=== PATIENT | female | born 1950 | race Caucasian/White ===

== ENCOUNTER 2017-03-08 10:44 | Inpatient (IN) | payer MEDICARE, BC ==
--- NOTE | ~2017-03-08 | HP ---
History And Physical [id number] [place]. [address] NAME: SAMARIA TURCIOS : 50 STATUS : ADM IN PAT#: [id number] AGE: 66 ADM/REG DATE : 03/08/17 MR#: [id number] REPORT SERV DATE: 03/08/17 DICTATED BY: RICK ASENCIO DATE: 03/08/17 REPORT STATUS : Draft TRANSCRIBED BY: MODL DATE: 03/08/17 DATE OF ADMISSION: 03/08/2017 EXAMINING PHYSICIAN: Rick Asencio M.D. REASON FOR ADMISSION: Diverticulitis. HISTORY OF PRESENT ILLNESS: This is a 66-year-old white female, who has had multiple episodes of diverticulitis in the past. She started one day of lower abdominal pain. She called Dr. Jenkins, who's nurse refer her to the emergency room for possible admission. She does have a history of small-bowel obstruction in the past. Last bowel movement was yesterday. She has had no vomiting, has had nausea. Maybe temperature of less than 100, but no other symptoms other than the lower abdominal pain, worse with walking and standing. She does have a past history of diverticulosis with diverticular rupture and peritonitis, white count was 55,000 at that time. She had a colostomy placed by Dr. Krishnan with a takedown subsequently. She has had a colectomy with loss of the descending and sigmoid colon in the past. Most of her diverticulitis now have been flare ups of the transverse colon, but she has a pandiverticulosis. The patient is admitted for IV antibiotics and IV fluid. The CT scan of the abdomen showed inflammatory changes in the fat surrounding the wall and thickening of the transverse colon, mid portion consistent with diverticulitis. She had mild distention of the small bowel as well consistent with ileus. PAST MEDICAL HISTORY: She has had multiple surgeries. She had three incisional hernias that had been repaired by Dr. Krishnan. History of sigmoid colectomy. History of reversal hysterectomy by Dr. Michael Dowling and a remote appendectomy. ALLERGIES: NONSTEROIDAL AND ANTI-INFLAMMATORY AGENTS CAUSE ADVERSE SIDE EFFECTS. HOME MEDICATIONS: Include the following: Artificial Tears 1 drop p.r.n.; estradiol 0.075 mg patch two days a week, Tuesday and Tuesday; losartan/HCTZ 50/12.5, she takes half a day as prophylaxis for cerebral aneurysm rupture, given by her liquid yeast supervisor Dr. Dowling. History of Olga 180 mg p.r.n. allergies, potassium 10 mEq half tablet at bedtime. FAMILY HISTORY: Father of a cerebral aneurysm. She has a brother who was discovered to have a cerebral aneurysm. He was also treated for leukemia. Father at age 59. SOCIAL HISTORY: She is . Lives with . Lives on [address]. Attended a babberly at [facility] in the past. No cigarettes or alcohol. She has no children. She has not been attending sikhism recently. REVIEW OF SYSTEMS: History And Physical [address] [address] NAME: SAMARIA TURCIOS : 50 STATUS : ADM IN [facility]#: [id number] AGE: 66 ADM/REG DATE : 03/08/17 MR#: [id number] REPORT SERV DATE: 03/08/17 DICTATED BY: RICK ASENCIO DATE: 03/08/17 REPORT STATUS : Draft TRANSCRIBED BY: MIKE DATE: 03/08/17 She had cholecystectomy for acalculous cholecystitis, history of hysterectomy, and small- bowel obstructions in the past. She has had no chest pain, shortness of breath, no fever, chills, night sweats, melena, or hematemesis. She has had nausea without vomiting. Normal bowel movement yesterday. No abdominal distention or leg swelling. No loss of coordination, unilateral weakness, fits, seizures, or convulsions. The remainder of the review of systems is negative. PHYSICAL EXAMINATION: GENERAL: White female, in no acute distress. VITAL SIGNS: Her blood pressure was 162/72, with a heart rate of 84, respiratory rate 16, afebrile. Oxygen saturation 99%. HEENT: EOMI. Sclerae clear. Conjunctivae pink. NECK: No bruit without any JVD. CHEST: Clear to A and P. HEART: Regular S1, S2 without murmur, gallop, or click. BREASTS: Grossly without mass. ABDOMEN: Tender diffusely. Bowel sounds are positive. EXTREMITIES: Have no edema. Distal pulses intact in dorsalis pedis and posterior tibial. NEUROLOGIC: She withdraws to plantar stimulation. Maintenance Mechanic Supervisor is equal and symmetric bilaterally. Coordination is intact. She has no tremor. LYMPHATICS: There is no adenopathy palpable. SKIN: Without rash, ecchymosis, or bruising. LABORATORY DATA: CT scan of the abdomen shows the pericolic inflammation in the transverse. Lactic acid level of 1.0. CMP: Sodium 137, potassium 3.7, and creatinine 0.81. Liver tests were normal. Lipase 109. White count was 12.8, hemoglobin 13.1, hematocrit 38.3, and platelet count 188,000. Urinalysis shows specific gravity of 1.006. PH of 7, negative diff, no cells. ASSESSMENT: 1. Diverticulitis, transverse colon, we will check a procalcitonin and a sedimentation rate, started on IV Unasyn as this has helped in the past. Convert to p.o. Augmentin rather quickly when she responds. 2. History of diverticulitis and diverticular rupture. Transverse and right colon remains. She says she has had a descending and sigmoid colectomy in the past. 3. Family history of cerebral aneurysm. She is on prophylactic estrogen and antihypertensives from Dr. Michael Dowling. PLAN: We will go to admission rather than observation as the patient has had significant problems in the past. DB/MIKE Rick Asencio M.D. History And Physical [address] [address] NAME: SAMARIA TURCIOS : 50 STATUS : ADM IN PAT#: [id number] AGE: 66 ADM/REG DATE : 03/08/17 MR#: [id number] REPORT SERV DATE: 03/08/17 DICTATED BY: RICK ASENCIO DATE: 03/08/17 REPORT STATUS : Draft TRANSCRIBED BY: MODL DATE: 03/08/17 / [id number] CC: Fadi Liriano III, M.D. Thomas Weldon, M.D.
--- NOTE | ~2017-03-08 | DS ---
Discharge Summary [facility] [address] [place]. [address] NAME: SAMARIA TURCIOS : 50 STATUS : ADM IN PAT#: [id number] AGE: 66 ADM/REG DATE : 03/08/17 MR#: [id number] REPORT SERV DATE: 03/11/17 DICTATED BY: TALIB MONDRAGON DATE: 03/11/17 REPORT STATUS : Draft TRANSCRIBED BY: MODL DATE: 03/11/17 ADMISSION DATE: 03/08/2017 DISCHARGE DATE: 03/11/2017 CONDITION ON DISCHARGE: Stable. DISPOSITION: Discharged to home. ADVICE ON DISCHARGE: To follow up with PCP within the next two weeks. DIAGNOSES ON DISCHARGE: 1. Acute diverticulitis-resolved. 2. History of diverticulitis previously and a history of diverticular rupture, for which she had to require partial colon resection. The patient has also had colostomy with colostomy reversal in the past. Currently, she does not have any colostomy. The patient is healthy otherwise. BRIEF HOSPITAL COURSE: The patient is a very pleasant 66-year-old, otherwise healthy, female patient, who was admitted with essentially abdominal pain, nausea. The patient had no vomiting. The patient did not have any significant diarrhea either, but her abdominal pain was severe enough for her to come on to the ER. The patient did get a CT scan of the abdomen that showed acute diverticulitis of the colon and this time it was the transverse colon and she was admitted for intravenous antibiotics and IV fluids. She received IV Unasyn as this has worked for her in the past and today is day #4 of receiving Unasyn and the patient is improved significantly. She denies any abdominal pain on the day of discharge. She is tolerating regular soft food really well. She feels that she is ready to go home and hence, she is being discharged on ten more days of Augmentin. So, her discharge medications will be Augmentin 875 mg p.o. b.i.d. for ten more days, next [place] 5/325 one to two p.o. twice a day p.r.n. for pain #15 only. Other than that, the patient is stable for discharge and no other medications have been given to her. She will resume all her regular home medications that she takes for hypertension and the only other additional medicine besides the Augmentin is Florastor 1 capsule p.o. b.i.d. for the next ten days also. The most recent lab work I have on this patient include the following. CBC on the day of discharge shows a WBC count of 5.2, hemoglobin 12.3, hematocrit 35.8, and platelet count of 179. Her comprehensive metabolic profile shows sodium 142, potassium 4.1, BUN 9, creatinine 0.6. LFTs are normal. Sedimentation rate is normal. Procalcitonin is normal and the patient is being discharged in stable condition and I have spent about 30 minutes in coordinating discharge care of this patient including this [id number] encounter. DICTATED BY: Fadi Bryan/MIKE Discharge Summary [address] [address] NAME: SAMARIA TURCIOS : 50 STATUS : ADM IN [facility]#: [id number] AGE: 66 ADM/REG DATE : 03/08/17 MR#: [id number] REPORT SERV DATE: 03/11/17 DICTATED BY: TALIB MONDRAGON DATE: 03/11/17 REPORT STATUS : Draft TRANSCRIBED BY: MIKE DATE: 03/11/17 Talib Mondargon M.D. / [id number] CC: Fadi Bryan M.D.
[2017-03-08 10:35] LABS: BASOPHILS 0.2 %; BASOPHILS ABSOLUTE 0.03 10/3/uL (0.0-0.16); EOSINOPHILS 0 %; ER CBC TAT 0 Hrs 00 Mins; HEMATOCRIT 38.3 % (36.0-48.0); HEMOGLOBIN 13.1 g/dL (12.0-16.0); IMMATURE GRANULOCYTES 0.2 %; IMMATURE GRANULOCYTES ABSOLUTE 0.03 10/3/uL (0.0-0.11); LYMPHOCYTES 12.8 %; LYMPHOCYTES ABSOLUTE 1.64 10/3/uL (0.67-4.30); MEAN CORPUS HGB CONC 34.2 g/dL (32.0-36.0); MEAN CORPUSCULAR HEMOGLOB 30.9 pg (26.0-34.0); MEAN CORPUSCULAR VOLUME 90.3 fL (80-100); MEAN PLATELET VOLUME 11.1 fL (9.2-13.0); MONOCYTES 12.7 %; MONOCYTES ABSOLUTE 1.62 10/3/uL (0.21-1.20); NEUTROPHILS 74.1 %; NEUTROPHILS ABSOLUTE 9.46 10/3/uL (2.02-8.40); PLATELET COUNT 188 10/3/uL (150-400); RBC DISTRIBUTION WIDTH 13.7 % (12.0-16.0); RED CELL COUNT 4.24 10/6/uL (4.0-5.6); WHITE BLOOD CELLS 12.8 10/3/uL (4.5-10.5)
[2017-03-08 10:37] LABS: ASCORBIC ACID (UR NOT ORDER) NEG (NEG); BILIRUBIN, URINE NEGATIVE (NEG); ER URINALYSIS TAT 0 Hrs 28 Mins; KETONE, URINE NEGATIVE (NEG); LEUKOCYTE ESTERASE(NOT OR NEG (NEG); NITRITE (URINE) NEG (NEG); WBC (NOT ORDERED) (RFLEX) < 1 (0-5)
[2017-03-08 10:38] LABS: MANUAL DIFF NO %
[~2017-03-08 10:44] MED LIST: ALLEGRA180 PO; CALTRA600D PO; CALTRAT600 PO; DARV PO; GLUCCHONDR PO; HYZAAR 50/12.51 TAB PO; LEVSINTAB PO; METAMUCIL CAN7 OZ PO; METROGEL1 % TOP; MINIVELLE1 EAC2 TOP; MULTIVITAMI1 PO; PSEUDOEPHEDR30 MG OR; REFRESH OP; SYNTEST H.S. PO; SYSTANE BALANCE OP; T PO; ULTRAM50 PO; VITAMIN B PO; VITAMIN B-100 PO; VIVELLE-DOT0.075 MG TOP
[2017-03-08 10:50] LABS: A/G RATIO 1.2 (0.7-1.9); ALBUMIN 3.8 G/DL (3.5-5.0); ALKALINE PHOSPHATASE 64 U/L (45-117); BUN (BLOOD UREA NITROGEN) 14 MG/DL (6-23); CALCIUM, SERUM 9.1 MG/DL (8.5-10.4); CHLORIDE, SERUM 106 MMOL/L (96-112); CO2 (CARBON DIOXIDE) 29 MMOL/L (24-34); CREATININE 0.81 MG/DL (0.55-1.02); GFR AFRICAN AMERICAN 88 ML/MIN (>=60); GFR NON AFRICAN AMERICAN 76 ML/MIN (>=60); GLOBULIN 3.2 G/DL (2.5-4.1); GLUCOSE, SERUM 91 MG/DL (60-99); POTASSIUM, SERUM 3.7 MMOL/L (3.5-5.3); SGOT(AST) 16 U/L (5-40); SGPT(ALT) 19 U/L (5-65); SODIUM, SERUM 141 MMOL/L (135-148); TOTAL BILIRUBIN 0.9 MG/DL (0-1.2)
[2017-03-08] MEDS ORDERED: MINIVELLE1 EAC2 TOP (12:13)
[2017-03-08] MEDS ORDERED: HYZAAR 50/12.51 TAB PO (12:13)
[2017-03-08] MEDS ORDERED: THERGRANM PO (12:15)
[2017-03-08] MEDS ORDERED: KLOR-CON 1010 MEQ PO (12:15)
[2017-03-08] MEDS ORDERED: TEARS PLUS OPH (12:16)
[2017-03-08] MEDS ORDERED: ALLEGRA180 PO (12:16)
[2017-03-09 11:17] LABS: CALCIUM, SERUM 8.8 MG/DL (8.5-10.4); CHLORIDE, SERUM 104 MMOL/L (96-112); CO2 (CARBON DIOXIDE) 30 MMOL/L (24-34); CREATININE 0.71 MG/DL (0.55-1.02); GFR AFRICAN AMERICAN 103 ML/MIN (>=60); GFR NON AFRICAN AMERICAN 89 ML/MIN (>=60); GLUCOSE, SERUM 94 MG/DL (60-99); SODIUM, SERUM 137 MMOL/L (135-148)
[2017-03-09 11:18] LABS: BUN (BLOOD UREA NITROGEN) 7 MG/DL (6-23); POTASSIUM, SERUM 4.8 MMOL/L (3.5-5.3)
[2017-03-10 06:10] LABS: BASOPHILS 0.3 %; BASOPHILS ABSOLUTE 0.02 10/3/uL (0.0-0.16); EOSINOPHILS 1.3 %; EOSINOPHILS ABSOLUTE 0.09 10/3/uL (0.0-0.53); HEMATOCRIT 36.3 % (36.0-48.0); HEMOGLOBIN 12.1 g/dL (12.0-16.0); IMMATURE GRANULOCYTES 0.1 %; IMMATURE GRANULOCYTES ABSOLUTE 0.01 10/3/uL (0.0-0.11); LYMPHOCYTES 29.9 %; LYMPHOCYTES ABSOLUTE 2.12 10/3/uL (0.67-4.30); MEAN CORPUS HGB CONC 33.3 g/dL (32.0-36.0); MEAN CORPUSCULAR HEMOGLOB 30.6 pg (26.0-34.0); MEAN CORPUSCULAR VOLUME 91.9 fL (80-100); MONOCYTES 12.5 %; MONOCYTES ABSOLUTE 0.89 10/3/uL (0.21-1.20); NEUTROPHILS 55.9 %; NEUTROPHILS ABSOLUTE 3.97 10/3/uL (2.02-8.40); PLATELET COUNT 180 10/3/uL (150-400); RBC DISTRIBUTION WIDTH 13.5 % (12.0-16.0); RED CELL COUNT 3.95 10/6/uL (4.0-5.6)
[2017-03-10 06:11] LABS: MANUAL DIFF NO %; WHITE BLOOD CELLS 7.1 10/3/uL (4.5-10.5)
[2017-03-10 06:22] LABS: BUN (BLOOD UREA NITROGEN) 5 MG/DL (6-23); CALCIUM, SERUM 8.5 MG/DL (8.5-10.4); CHLORIDE, SERUM 108 MMOL/L (96-112); CO2 (CARBON DIOXIDE) 29 MMOL/L (24-34); CREATININE 0.71 MG/DL (0.55-1.02); GFR AFRICAN AMERICAN 103 ML/MIN (>=60); GFR NON AFRICAN AMERICAN 89 ML/MIN (>=60); GLUCOSE, SERUM 90 MG/DL (60-99); POTASSIUM, SERUM 4.4 MMOL/L (3.5-5.3); SODIUM, SERUM 141 MMOL/L (135-148)
[2017-03-11 06:19] LABS: BASOPHILS 0.4 %; BASOPHILS ABSOLUTE 0.02 10/3/uL (0.0-0.16); EOSINOPHILS ABSOLUTE 0.21 10/3/uL (0.0-0.53); HEMATOCRIT 35.8 % (36.0-48.0); HEMOGLOBIN 12.3 g/dL (12.0-16.0); IMMATURE GRANULOCYTES 0.2 %; IMMATURE GRANULOCYTES ABSOLUTE 0.01 10/3/uL (0.0-0.11); LYMPHOCYTES 31.2 %; LYMPHOCYTES ABSOLUTE 1.62 10/3/uL (0.67-4.30); MEAN CORPUS HGB CONC 34.4 g/dL (32.0-36.0); MEAN CORPUSCULAR HEMOGLOB 31.2 pg (26.0-34.0); MEAN CORPUSCULAR VOLUME 90.9 fL (80-100); MEAN PLATELET VOLUME 10.9 fL (9.2-13.0); MONOCYTES 18.5 %; MONOCYTES ABSOLUTE 0.96 10/3/uL (0.21-1.20); NEUTROPHILS 45.7 %; NEUTROPHILS ABSOLUTE 2.38 10/3/uL (2.02-8.40); PLATELET COUNT 179 10/3/uL (150-400); RBC DISTRIBUTION WIDTH 13.2 % (12.0-16.0); RED CELL COUNT 3.94 10/6/uL (4.0-5.6); WHITE BLOOD CELLS 5.2 10/3/uL (4.5-10.5)
[2017-03-11 06:24] LABS: MANUAL DIFF NO %
[2017-03-11 06:37] LABS: ALBUMIN 3.1 G/DL (3.5-5.0); ALKALINE PHOSPHATASE 53 U/L (45-117); BUN (BLOOD UREA NITROGEN) 9 MG/DL (6-23); CALCIUM, SERUM 8.7 MG/DL (8.5-10.4); CHLORIDE, SERUM 108 MMOL/L (96-112); CO2 (CARBON DIOXIDE) 30 MMOL/L (24-34); CREATININE 0.66 MG/DL (0.55-1.02); GFR AFRICAN AMERICAN 107 ML/MIN (>=60); GFR NON AFRICAN AMERICAN 92 ML/MIN (>=60); GLOBULIN 3.2 G/DL (2.5-4.1); GLUCOSE, SERUM 81 MG/DL (60-99); POTASSIUM, SERUM 4.1 MMOL/L (3.5-5.3); SGOT(AST) 13 U/L (5-40); SGPT(ALT) 14 U/L (5-65); SODIUM, SERUM 142 MMOL/L (135-148); TOTAL PROTEIN 6.3 G/DL (6.0-8.5)
[2017-03-11] MEDS ORDERED: FLORASTOR250 MG PO (09:34)
[2017-03-11] MEDS ORDERED: NORCO1 TA1 PO (09:34)
[2017-03-11] MEDS ORDERED: AUG875 PO (09:34)
== END 2017-03-11 11:17 | disposition home or self-care (01) | DRG 392 ==
LOC: ER 10:44 → 5SO 12:42
PROVIDERS: Emergency Medicine
DX: K57.32 Diverticulitis of large intestine without perforation or abscess without bleeding (principal); Z88.8 Allergy status to other drugs, medicaments and biological substances; Z90.49 Acquired absence of other specified parts of digestive tract; Z98.890 Other specified postprocedural states; Z79.899 Other long term (current) drug therapy; Z90.710 Acquired absence of both cervix and uterus
CPT/HCPCS: 74176; 80048; 80053; 81001; 83605; 83690; 84145; 85025; 85652; 87493; 87493-59; 96374; 99285; A9270-GY; J0295; J1170; J2405